=== PATIENT | male | born 1985 | race Caucasian/White ===

== ENCOUNTER 2018-10-04 14:46 | Emergency (ER) | payer OTHER, BC ==
[2018-10-04] MEDS ORDERED: Cephalexin 500 MG Cap PO ONE (15:11)
--- NOTE | 2018-10-04 15:30 | CR ---
Clinical history: 33-year-old male complaining of pain right thumb following injury. Interpretation: Abnormal. 3 views right thumb confirm acute nondisplaced transverse fracture proximal diaphysis distal phalanx right thumb i.e. satisfactory apposition and anatomic alignment. No involvement (fracture extension) or dislocation of the right thumb joints. No foreign bodies.
--- NOTE | 2018-10-04 23:09 | ER ---
SUBJECTIVE: The patient is a 33-year-old normally healthy male. He was on the job, working, working with a hydraulic valve and when suddenly the valve came off under high pressure and hit his right thumb along the base of the nail plate. He is right-hand dominant. He states he had his last tetanus within 2-5 years and is quite sure he does not need one, but he will check it out with his and/or call the clinic. He took no medicines, he declines any medicines, states it hurts, but he does not want anything for pain and he will take something at home. No fevers. He did have some bleeding initially along the dorsal aspect of the thumb at the base of the nail plate. He is unsure if it is lacerated. He is afraid it might be broke. He denies injuries elsewhere and no head injury. No shortness of breath. He has no other complaints. PAST MEDICAL HISTORY: Unremarkable. He states he is healthy. CURRENT MEDICATIONS: Denied. ALLERGIES: He denies being allergic to no meds. SOCIAL HISTORY: He is . He smokes cigarettes every day. Drinks coffee. No alcohol, no recreational drug use. REVIEW OF SYSTEMS: Right thumb injury, please see HPI. Otherwise denies any other issues. OBJECTIVE: Vital Signs: Stable. He is afebrile. General: Healthy-appearing male, ambulatory, good historian. A and O x3. HEENT: Normocephalic and atraumatic. No respiratory distress. Extremities: Focused exam of his right hand does show some swelling and tenderness to his right thumb which was initially wrapped up, but it was unwrapped. No active bleeding, although there was blood on the dressing that had initially been placed on the thumb. He has an obvious contusion and probable crush injury to the thumb along the base of the nail plate. It is still intact, however, but he may lose the nail plate at some point. There is no specific laceration to be repaired. No sutures required. There is no specific deformity. There is mild swelling. There is quite a bit of tenderness. He has good capillary refill. The remainder of the thumb is not remarkable and the hand and wrist are also not remarkable. X-ray was performed on the right hand and specifically the right thumb shows a transverse and nondisplaced fracture of the mid part of the distal phalanges of the right thumb. EMERGENCY ROOM COURSE: The thumb was soaked in the Betadine, it was then cleansed and dressed and wrapped and splinted. He was given a tablet of Keflex. He declined any pain meds. ASSESSMENT: 1. Right thumb fracture with x-ray showing transverse and nondisplaced fracture of the distal phalanx of the right thumb. 2. Crush injury of the right thumb and no repair needed. PLAN: Prescription for Keflex 500 mg q.i.d. for 10 days, because it could technically be considered an open fracture because of the crush injury and broken skin at the base of the nail plate along with the fracture of the bone. Advised Tylenol or ibuprofen for baseline pain. Elevate if throbs. To keep clean and dry. Repeat x-rays and recheck with PCP in 1-2 weeks. Return to emergency room for any emergent issues. [facility] /[id number]
--- NOTE | 2018-10-09 01:14 | ER ---
ADDENDUM: A preformed thumb spica splint was used to support the fracture of the thumb. [facility] /[id number]
== END 2018-10-04 15:50 | disposition home or self-care (01) ==
LOC: DL.ED 14:46
DX: S67.01XA Crushing injury of right thumb, initial encounter (principal); S62.524A Nondisplaced fracture of distal phalanx of right thumb, initial encounter for closed fracture; F17.210 Nicotine dependence, cigarettes, uncomplicated; W22.8XXA Striking against or struck by other objects, initial encounter; Y99.0 Civilian activity done for income or pay
CPT/HCPCS: 73140; 99283; A9270

== ENCOUNTER 2020-11-21 00:51 | Emergency (ER) | payer BC, OTHER ==
[2020-11-21] MEDS ORDERED: Sodium Chloride 0.9% 1,000 ML IV ONE (00:56)
[2020-11-21] MEDS ORDERED: HYDROmorphone 1 MG/ML Syringe IVPUSH ONE (00:59)
[2020-11-21] MEDS ORDERED: Ondansetron 4 MG/2 ML SDV IVPUSH ONE (01:00)
--- NOTE | 2020-11-21 01:18 | EDM.PDOC ---
"ED HPI GENERAL MEDICAL PROBLEM - General Chief Complaint: Abdominal Pain Stated Complaint: SEVERE ABDOMINAL PAIN VOMITING Time Seen by Provider: 11/21/20 01:00 Source of Information: Reports: Patient History Limitations: Reports: No Limitations - History of Present Illness INITIAL COMMENTS - FREE TEXT/NARRATIVE: This 35 yo male patient reports to the ED with an acute onset of right sided abdominal pain and pain in his back. The patient reports he had been doing fine all day, came home, drank a couple of beers and suddenly had increased pain in his lower abdomen and back. The patient reports his pain has been intermittent. When the pain is present, the patient reports his pain is a 10/10. At the time of examination, the patient reports his pain is a 2/10. The patient has no history of abdominal pain, surgeries or kidney stones. Onset: Today Duration: Minutes: (40), Intermittent Location: Reports: Abdomen Quality: Reports: Ache, Sharp, Stabbing Severity: Severe Improves with: Reports: None Worsens with: Reports: None Context: Reports: Other Associated Symptoms: Reports: No Other Symptoms Right Lower Abdomen Pain Score (Numeric/FACES): 10 - Related Data Allergies Allergy/AdvReac Type Severity Reaction Status Date / Time No Known Allergies Allergy Verified 11/21/20 01:25 Home Meds: Home Meds . [No Known Home Meds] 10/04/18 [History] Past Medical History HEENT History: Reports: Impaired Vision Cardiovascular History: Reports: None Respiratory History: Reports: None Gastrointestinal History: Reports: None Genitourinary History: Reports: None Musculoskeletal History: Reports: None Neurological History: Reports: None Psychiatric History: Reports: None Endocrine/Metabolic History: Reports: None Hematologic History: Reports: None Immunologic History: Reports: None Oncologic (Cancer) History: Reports: None Dermatologic History: Reports: None - Infectious Disease History Infectious Disease History: Reports: None - Past Surgical History Head Surgeries/Procedures: Reports: None Social & Family History - Family History Family Medical History: No Pertinent Family History - Caffeine Use Caffeine Use: Reports: Coffee ED ROS GENERAL - Review of Systems Review Of Systems: Comprehensive ROS is negative, except as noted in HPI. ED EXAM, GI/ABD - Physical Exam Exam: See Below Exam Limited By: No Limitations General Appearance: Alert, WD/WN, Moderate Distress Eyes: Bilateral: Normal Appearance, EOMI Ears: Normal External Exam, Normal Canal, Hearing Grossly Normal, Normal TMs Nose: Normal Inspection, Normal Mucosa, No Blood Throat/Mouth: Normal Inspection, Normal Lips, Normal Teeth, Normal Gums, Normal Oropharynx, Normal Voice, No Airway Compromise Head: Atraumatic, Normocephalic Neck: Normal Inspection, Supple, Non-Tender, Full Range of Motion Respiratory/Chest: No Respiratory Distress, Lungs Clear, Normal Breath Sounds, No Accessory Muscle Use, Chest Non-Tender Cardiovascular: Normal Peripheral Pulses, Regular Rate, Rhythm, No Edema, No Gallop, No JVD, No Murmur, No Rub GI/Abdominal Exam: Normal Bowel Sounds, Guarding, Tender (epigastric area and right lower quadrant) (Male) Exam: Deferred Rectal (Males) Exam: Deferred Back Exam: CVA Tenderness (R) Extremities: Normal Inspection, Normal Range of Motion, Non-Tender, Normal Capillary Refill, No Pedal Edema Neurological: Alert, Oriented, CN II-XII Intact, Normal Cognition, Normal Gait, Normal Reflexes, No Motor/Sensory Deficits Psychiatric: Normal Affect, Normal Mood Skin Exam: Warm, Dry, Intact, Normal Color, No Rash Lymphatic: No Adenopathy Course - Vital Signs Last Recorded V/S: Last Vital Signs Temp 36.5 C 11/21/20 00:55 Pulse 87 11/21/20 00:55 Resp 19 11/21/20 00:55 BP 141/91 H 11/21/20 00:55 Pulse Ox 100 11/21/20 00:55 - Orders/Labs/Meds Orders: Active Orders 24 hr Category Date Time Status Abdomen Pelvis w Cont [CT] Urgent Exams 11/21/20 02:00 Ordered CULTURE BLOOD [BC] Stat Lab 11/21/20 00:53 Ordered Sodium Chloride 0.9% [Normal Saline] 1,000 ml Med 11/21/20 00:56 Ordered IV .BOLUS Medication Orders Sodium Chloride (Normal Saline) 1,000 mls @ 125 mls/hr IV .BOLUS ONE Stop: 11/21/20 08:55 Last Admin: 11/21/20 01:09 Dose: 125 mls/hr Documented by: UNIQUE Labs: Laboratory Tests 11/21/20 11/21/20 11/21/20 Range/Units 01:00 01:00 01:00 WBC 11.0 H (5.0-10.0) 10^3/uL RBC 5.14 (4.6-6.2) 10^6/uL Hgb 16.4 (14.0-18.0) g/dL Hct 46.3 (40.0-54.0) % MCV 90.1 (80-100) fL MCH 31.9 (27.0-34.0) pg MCHC 35.4 H (33.0-35.0) g/dL Plt Count 226 (150-450) 10^3/uL Neut % (Auto) 51.5 (42.2-75.2) % Lymph % (Auto) 36.9 (20.5-50.1) % [place] % (Auto) 8.3 H (2-8) % Eos % (Auto) 3.0 (1.0-3.0) % Baso % (Auto) 0.3 (0.0-1.0) % Sodium 136 (136-145) mmol/L Potassium 3.8 (3.5-5.1) mmol/L Chloride 99 (98-107) mmol/L Carbon Dioxide 24 (21-32) mmol/L Anion Gap 16.8 H (7-13) mEq/L BUN 13 (7-18) mg/dL Creatinine 1.05 (0.70-1.30) mg/dL Est Cr Clr Drug Dosing TNP Estimated GFR (MDRD) > 60 BUN/Creatinine Ratio 12.4 (No establ ref range) Glucose 88 (70-99) mg/dL Lactic Acid 1.3 (0.4-2.0) mmol/L Calcium 8.7 (8.5-10.1) mg/dL Total Bilirubin 0.3 (0.2-1.0) mg/dL AST 61 H (15-37) U/L ALT 53 (16-63) U/L Alkaline Phosphatase 104 (46-116) U/L Total Protein 7.8 (6.4-8.2) g/dL Albumin 4.2 (3.4-5.0) g/dL Globulin 3.6 Albumin/Globulin Ratio 1.2 Urine Color (YELLOW) Urine Appearance (CLEAR) Urine pH (5.0-9.0) Ur Specific [place] (1.005-1.030) Urine Protein (NEGATIVE) Urine Glucose (UA) (NEGATIVE) Urine Ketones (NEGATIVE) Urine Occult Blood (NEGATIVE) Urine Nitrite (NEGATIVE) Urine Bilirubin (NEGATIVE) Urine Urobilinogen (0.2-1.0) mg/dL Ur Leukocyte Esterase (NEGATIVE) Urine Opiates Screen (NEGATIVE) Ur Oxycodone Screen (NEGATIVE) Urine Methadone Screen (NEGATIVE) Ur Barbiturates Screen (NEGATIVE) U Tricyclic Antidepress (NEGATIVE) Ur Phencyclidine Scrn (NEGATIVE) Ur Amphetamine Screen (NEGATIVE) U Methamphetamines Scrn (NEGATIVE) Urine MDMA Screen (NEGATIVE) U Benzodiazepines Scrn (NEGATIVE) Urine Cocaine Screen (NEGATIVE) U Marijuana (THC) Screen (NEGATIVE) 11/21/20 11/21/20 Range/Units 01:47 01:54 WBC (5.0-10.0) 10^3/uL RBC (4.6-6.2) 10^6/uL Hgb (14.0-18.0) g/dL Hct (40.0-54.0) % MCV (80-100) fL MCH (27.0-34.0) pg MCHC (33.0-35.0) g/dL Plt Count (150-450) 10^3/uL Neut % (Auto) (42.2-75.2) % Lymph % (Auto) (20.5-50.1) % [place] % (Auto) (2-8) % Eos % (Auto) (1.0-3.0) % Baso % (Auto) (0.0-1.0) % Sodium (136-145) mmol/L Potassium (3.5-5.1) mmol/L Chloride (98-107) mmol/L Carbon Dioxide (21-32) mmol/L Anion Gap (7-13) mEq/L BUN (7-18) mg/dL Creatinine (0.70-1.30) mg/dL Est Cr Clr Drug Dosing Estimated GFR (MDRD) BUN/Creatinine Ratio (No establ ref range) Glucose (70-99) mg/dL Lactic Acid (0.4-2.0) mmol/L Calcium (8.5-10.1) mg/dL Total Bilirubin (0.2-1.0) mg/dL AST (15-37) U/L ALT (16-63) U/L Alkaline Phosphatase (46-116) U/L Total Protein (6.4-8.2) g/dL Albumin (3.4-5.0) g/dL Globulin Albumin/Globulin Ratio Urine Color Yellow (YELLOW) Urine Appearance Clear (CLEAR) Urine pH 5.5 (5.0-9.0) Ur Specific [place] <= 1.005 (1.005-1.030) Urine Protein Negative (NEGATIVE) Urine Glucose (UA) Negative (NEGATIVE) Urine Ketones Negative (NEGATIVE) Urine Occult Blood Negative (NEGATIVE) Urine Nitrite Negative (NEGATIVE) Urine Bilirubin Negative (NEGATIVE) Urine Urobilinogen 0.2 (0.2-1.0) mg/dL Ur Leukocyte Esterase Negative (NEGATIVE) Urine Opiates Screen Negative (NEGATIVE) Ur Oxycodone Screen Negative (NEGATIVE) Urine Methadone Screen Negative (NEGATIVE) Ur Barbiturates Screen Negative (NEGATIVE) U Tricyclic Antidepress Negative (NEGATIVE) Ur Phencyclidine Scrn Negative (NEGATIVE) Ur Amphetamine Screen Negative (NEGATIVE) U Methamphetamines Scrn Negative (NEGATIVE) Urine MDMA Screen Negative (NEGATIVE) U Benzodiazepines Scrn Negative (NEGATIVE) Urine Cocaine Screen Negative (NEGATIVE) U Marijuana (THC) Screen Negative (NEGATIVE) Meds: Medications Generic Name Dose Route Start Last Admin Trade Name Freq PRN Reason Stop Dose Admin Sodium Chloride 1,000 mls @ 125 mls/hr 11/21/20 00:56 11/21/20 01:09 Normal Saline IV 11/21/20 08:55 125 mls/hr .BOLUS ONE Administration Discontinued Medications Generic Name Dose Route Start Last Admin Trade Name Freq PRN Reason Stop Dose Admin Hydromorphone HCl 1 mg 11/21/20 00:59 11/21/20 01:08 Hydromorphone 1 Mg/Ml Syringe IVPUSH 11/21/20 01:00 1 mg ONETIME ONE Administration Iopamidol 100 ml 11/21/20 02:00 11/21/20 02:19 Iopamidol 612 Mg/Ml 100 Ml Bottle IVPUSH 11/21/20 02:01 100 ml ONETIME ONE Administration Ondansetron HCl 4 mg 11/21/20 01:00 11/21/20 01:05 Ondansetron 4 Mg/2 Ml Sdv IVPUSH 11/21/20 01:01 4 mg ONETIME ONE Administration - Radiology Interpretation Free Text/Narrative:: [facility] Final Radiology Report Call: [phone] assistance Online chat: [email or web address] Name: SERENA SALDIVAR Age: 35Years M Date: 11/21/2020 SSN: -- : [id number] Study: CT ABDOMEN PELVIS W CONT Requesting Physician: Enrique Daniel Images: [phone] Addl Studies: Provided Clinical History: Right sided abdominal pain Contrast: With Contrast Medium: [id number] Contrast Amount: 100 mL Contrast Method: Intravenous (IV) Page 1 of 2 PROCEDURE INFORMATION: Exam: CT Abdomen And Pelvis With Contrast Exam date and time: 11/21/2020 2:22 AM Age: 35 years old Clinical indication: Other: Wbc 11,000; Additional info: Right sided abdominal pain TECHNIQUE: Imaging protocol: Computed tomography of the abdomen and pelvis with contrast. Radiation optimization: All CT scans at this facility use at least one of these dose optimization techniques: automated exposure control; mA and/or kV adjustment per patient size (includes targeted exams where dose is matched to clinical indication); or iterative reconstruction. Contrast material: [id number]; Contrast volume: 100 ml; Contrast route: INTRAVENOUS (IV); COMPARISON: No relevant prior studies available. FINDINGS: Lungs: Minimal hazy opacities are seen in the dependent portion of lungs compatible with dependent atelectasis. Liver: Normal. No mass. Gallbladder and bile ducts: Normal. No calcified stones. No ductal dilation. Pancreas: Normal. No ductal dilation. Spleen: Normal. No splenomegaly. Adrenal glands: Normal. No mass. Kidneys and ureters: Normal. No hydronephrosis. Stomach and bowel: Unremarkable. No obstruction. No mucosal thickening. Appendix: The appendix is visualized and is normal in configuration. Intraperitoneal space: Unremarkable. No free air. No significant fluid collection. SERENA SALDIVAR | Final Radiology Report CONFIDENTIALITY STATEMENT This report is intended only for use by the referring physician, and only in accordance with law. If you received this in error, call [phone]. Page 2 of 2 Vasculature: Unremarkable. No abdominal aortic aneurysm. Lymph nodes: Unremarkable. No enlarged lymph nodes. Urinary bladder: Unremarkable as visualized. Reproductive: Unremarkable as visualized. Bones/joints: Unremarkable. No acute fracture. Soft tissues: There is a small left inguinal hernia present containing fat. IMPRESSION: There are no acute abdominal findings. Thank you for allowing us to participate in the care of your patient. Dictated and Authenticated by: Juwan Richmond MD 11/21/2020 2:43 AM Central Time ([place] & [place]) Departure - Departure Time of Disposition: 02:52 Disposition: Home, Self-Care 01 Condition: Fair Clinical Impression: Abdominal pain Qualifiers: Abdominal location: upper abdomen, unspecified Qualified Code(s): R10.10 - Upper abdominal pain, unspecified - Discharge Information *PRESCRIPTION DRUG MONITORING PROGRAM REVIEWED*: Not Applicable *COPY OF PRESCRIPTION DRUG MONITORING REPORT IN PATIENT AYUSH: Not Applicable Instructions: Abdominal Pain, Adult, [id number] Forms: ED Department Discharge Care Plan Goals: The patient was advised of the examination, lab and CT results during the visit. The patient was encouraged to stick to a low fat diet. If the patient has any additional symptoms or concerns, the patient should either return to the emergency department or visit his primary care facility. Sepsis Event Note (ED) - Focused Exam Vital Signs: Vital Signs Temp Pulse Resp BP Pulse Ox 11/21/20 00:55 36.5 C 87 19 141/91 H 100 - My Orders Last 24 Hours: My Active Orders 11/21/20 00:53 CULTURE BLOOD [BC] Stat 11/21/20 00:56 Sodium Chloride 0.9% [Normal Saline] 1,000 ml IV .BOLUS 11/21/20 02:00 Abdomen Pelvis w Cont [CT] Urgent - Assessment/Plan Last 24 Hours: My Active Orders 11/21/20 00:53 CULTURE BLOOD [BC] Stat 11/21/20 00:56 Sodium Chloride 0.9% [Normal Saline] 1,000 ml IV .BOLUS 11/21/20 02:00 Abdomen Pelvis w Cont [CT] Urgent"
[2020-11-21 01:23] LABS: ANION GAP 16.8 mEq/L (7-13); CHLORIDE,CL 99 mmol/L (98-107); SODIUM,NA 136 mmol/L (136-145)
[2020-11-21] MEDS ORDERED: Iopamidol 612 MG/ML 100 ML Bottle IVPUSH ONE (02:00)
--- NOTE | 2020-11-21 02:43 | CT ---
PROCEDURE INFORMATION: Exam: CT Abdomen And Pelvis With Contrast Exam date and time: 11/21/2020 2:22 AM Age: 35 years old Clinical indication: Other: Wbc 11,000; Additional info: Right sided abdominal pain TECHNIQUE: Imaging protocol: Computed tomography of the abdomen and pelvis with contrast. Radiation optimization: All CT scans at this facility use at least one of these dose optimization techniques: automated exposure control; mA and/or kV adjustment per patient size (includes targeted exams where dose is matched to clinical indication); or iterative reconstruction. Contrast material: [id number]; Contrast volume: 100 ml; Contrast route: INTRAVENOUS (IV); COMPARISON: No relevant prior studies available. FINDINGS: Lungs: Minimal hazy opacities are seen in the dependent portion of lungs compatible with dependent atelectasis. Liver: Normal. No mass. Gallbladder and bile ducts: Normal. No calcified stones. No ductal dilation. Pancreas: Normal. No ductal dilation. Spleen: Normal. No splenomegaly. Adrenal glands: Normal. No mass. Kidneys and ureters: Normal. No hydronephrosis. Stomach and bowel: Unremarkable. No obstruction. No mucosal thickening. Appendix: The appendix is visualized and is normal in configuration. Intraperitoneal space: Unremarkable. No free air. No significant fluid collection. Vasculature: Unremarkable. No abdominal aortic aneurysm. Lymph nodes: Unremarkable. No enlarged lymph nodes. Urinary bladder: Unremarkable as visualized. Reproductive: Unremarkable as visualized. Bones/joints: Unremarkable. No acute fracture. Soft tissues: There is a small left inguinal hernia present containing fat. IMPRESSION: There are no acute abdominal findings.
== END 2020-11-21 02:56 | disposition home or self-care (01) ==
LOC: DL.ED 00:51
DX: R10.10 Upper abdominal pain, unspecified (principal); R10.13 Epigastric pain
CPT/HCPCS: 36415; 74177; 80053; 80305; 81003; 83605; 85025; 87040; 96374; 96375; 99283; 99284; J1170; J2405; J7030; Q9967